=== PATIENT | female | born 1970 | race Caucasian/White ===

== ENCOUNTER 2016-09-26 16:57 | Emergency (ER) | payer BC ==
[2016-09-26] MEDS ORDERED: SODIUM CHLORIDE 0.9% 1000ML 1,000 ML IV SCH (17:30)
[2016-09-26 17:46] LABS: BASOPHILS % (AUTO) 0 % (0-3); EOSINOPHILS % (AUTO) 0 % (0-9); HEMATOCRIT 30 % (35-47); MEAN CORPUSCULAR HGB CONC 34.2 gm/dl (32.0-36.0); MEAN CORPUSCULAR VOLUME 88 fL (81-99); MONOCYTES % (AUTO) 4.9 % (0-12)
[2016-09-26 18:01] LABS: ALBUMIN 2.8 gm/dl (3.4-5.0); CALCIUM 8.5 mg/dl (8.5-10.1); POTASSIUM 4.1 mMol/L (3.5-5.1)
[2016-09-26 18:39] LABS: ABO B; ANTIBODY SCREEN Negative; RH TYPE Positive
[2016-09-26 19:22] VITALS: RESP 22; TEMP 97.5
[2016-09-26] MEDS ORDERED: ONDANSETRON 4 MG ODT BU ONE (19:58)
[2016-09-26] MEDS ORDERED: ONDANSETRON 4 MG ODT ONE ×2 (19:59→21:24)
[2016-09-26 21:13] VITALS: BP 126/48; PULSE 85; O2SAT 98
[2016-09-26] MEDS ORDERED: ONDANSETRON 4 MG ODT BU PRN (21:23)
== END 2016-09-26 21:27 | disposition home or self-care (01) ==
LOC: ED 16:57
DX: N93.9 Abnormal uterine and vaginal bleeding, unspecified (principal)
CPT/HCPCS: 36415; 80053; 84703; 85025; 85610; 85730; 86850; 86900; 86901; 99283; 99284

== ENCOUNTER 2016-09-27 11:44 | Inpatient (IN) | payer BC ==
[2016-09-27 12:18] LABS: BASOPHILS % (AUTO) 0 % (0-3); EOSINOPHILS % (AUTO) 0 % (0-9); HEMATOCRIT 21 % (35-47); MEAN CORPUSCULAR HGB CONC 34.8 gm/dl (32.0-36.0); MEAN CORPUSCULAR VOLUME 87 fL (81-99); MONOCYTES % (AUTO) 3.5 % (0-12); NEUTROPHILS % (AUTO) 86.4 % (37-80)
[2016-09-27 12:38] LABS: CALCIUM 8.2 mg/dl (8.5-10.1); POTASSIUM 3.8 mMol/L (3.5-5.1)
[2016-09-27] MEDS ORDERED: CONJUGATED ESTROGENS 25 MG IV ONE ×2 (12:50→13:50)
[2016-09-27 13:06] LABS: UNIT TYPE O POSITIVE
[2016-09-27 13:07] LABS: UNIT TYPE O POSITIVE
[2016-09-27] MEDS ORDERED: SODIUM CHLORIDE 0.9% FLUSH 10 ML SOL IV PRN (14:11)
[2016-09-27] MEDS ORDERED: SODIUM CHLORIDE 0.9% 500 ML 500 ML IV SCH ×2 (14:15→20:30)
[2016-09-27] MEDS: SODIUM CHLORIDE 0.9% 1000ML 1,000 ML IV SCH ×2 (14:20→17:40)
[2016-09-27] MEDS ORDERED: SODIUM CHLORIDE 0.9% 1000ML 1,000 ML IV ONE (18:00)
[2016-09-27] MEDS ORDERED: SODIUM CHLORIDE 0.9% 1000ML 1,000 ML IV SCH (20:45)
[2016-09-27 21:55] LABS: UNIT TYPE O POSITIVE
[2016-09-27 21:56] LABS: UNIT TYPE O POSITIVE
[2016-09-28] MEDS: APAP/HYDROCODONE 325/5 TAB PO PRN ×2 (03:34→18:44)
[2016-09-28 07:44] LABS: BASOPHILS % (AUTO) 1 % (0-3); EOSINOPHILS % (AUTO) 0 % (0-9); HEMATOCRIT 22 % (35-47); MEAN CORPUSCULAR HGB CONC 36.6 gm/dl (32.0-36.0); MEAN CORPUSCULAR VOLUME 86 fL (81-99); MONOCYTES % (AUTO) 4.2 % (0-12); NEUTROPHILS % (AUTO) 78.8 % (37-80)
[2016-09-28 07:44] LABS: APPEARANCE,URINE Cloudy; BILIRUBIN,URINE NEGATIVE (NEGATIVE); COLOR,URINE Yellow; GLUCOSE, URINE (UA) NEGATIVE (NEGATIVE); KETONES,URINE TRACE (NEGATIVE); LEUKOCYTE ESTERASE ,URINE 1+ (NEGATIVE); NITRATE,URINE POSITIVE (NEGATIVE); OCCULT BLOOD,URINE 1+ (NEG-TRACE); PH,URINE 5.5; UROBILINOGEN,URINE 0.2 (0.2-1.0 EU)
[2016-09-28 08:04] LABS: RBC,URINE UNABLE (0-3AV/HPF); WBC,URINE TNTC (0-5AV/HPF)
[2016-09-28] MEDS: SULFAMETHOXAZOLE/TRIMETHOPRI 800/160 MG PO SCH ×2 (09:59→20:18)
[2016-09-28 13:08] LABS: UNIT TYPE O POSITIVE
[2016-09-28] MEDS: CONJUGATED ESTROGENS 25 MG IV SCH ×2 (14:38→19:01)
[2016-09-28 19:43] VITALS: BP 128/74; PULSE 104; RESP 16; O2SAT 98
[2016-09-28 19:46] VITALS: TEMP 98
[2016-09-28] MEDS ORDERED: SODIUM CHLORIDE 0.9% 1000ML 1,000 ML IV SCH (19:58)
[2016-09-28] MEDS ORDERED: CONJUGATED ESTROGENS 25 MG IV SCH (22:38)
== END 2016-09-28 22:08 | disposition short-term general hospital (02) | DRG 532 ==
LOC: ED 11:44 → ACUTE CARE 13:40 → UNDOADMIN 13:42 → ACUTE CARE 13:42
PROVIDERS: ADMIT Family Medicine; ATTEND Family Medicine
PROC: 30233N1 Transfusion of Nonautologous Red Blood Cells into Peripheral Vein, Percutaneous Approach (ICD-10-PCS; principal; 2016-09-27)
DX: N92.0 Excessive and frequent menstruation with regular cycle (principal); N39.0 Urinary tract infection, site not specified; D25.9 Leiomyoma of uterus, unspecified
CPT/HCPCS: 36415; 80048; 81001; 85018; 85025; 86920; 99070; 99284; J1410; P9016